=== PATIENT | male | born 1965 | race Caucasian/White ===

== ENCOUNTER 2017-05-26 11:24 | Emergency (ER) | payer MEDICARE, MEDICAID ==
[~2017-05-26] VITALS: Ht 188 cm; Wt 97.0 kg
[2017-05-26] MEDS ORDERED: HYDROcodone/APAP 5/325 TABLET ONE (13:36)
[2017-05-26] MEDS ORDERED: DIAZEPAM 5 MG TABLET ONE (13:36)
[2017-05-26] MEDS ORDERED: KETOROLAC 30 MG/1 ML ONE (13:36)
[2017-05-26] MEDS ORDERED: HYDROcodone/APAP 5/325 TABLET PO ONE (14:00)
[2017-05-26] MEDS ORDERED: DIAZEPAM 5 MG TABLET PO ONE (14:00)
[2017-05-26] MEDS ORDERED: KETOROLAC 30 MG/1 ML IM ONE (14:00)
[2017-05-26 14:05] VITALS: BP 135/89
== END 2017-05-26 14:11 | disposition home or self-care (01) ==
LOC: ED 13:50
DX: S39.012A Strain of muscle, fascia and tendon of lower back, initial encounter (principal); F31.9 Bipolar disorder, unspecified; G89.29 Other chronic pain; M54.5 Low back pain; X58.XXXA Exposure to other specified factors, initial encounter; Y93.89 Activity, other specified; Y92.89 Other specified places as the place of occurrence of the external cause; Y99.8 Other external cause status
CPT/HCPCS: 72110; 96372; 99284; J1885